=== PATIENT | male | born 1935 | race Caucasian/White ===

== ENCOUNTER 2017-03-22 17:44 | Emergency (ER) | payer MEDICARE, OTHER ==
[2017-03-22 18:00] VITALS: BP 127/50
--- NOTE | 2017-03-22 18:21 | UC ---
Laceration HPI - History Of Current Complaint Chief Complaint: Luisa Stated Complaint: LEFT ARM SKIN COMPLAINT Time Seen by Provider: 03/22/17 18:12 Hx Obtained From: Patient Laceration Location: Arm - Left forearm Mechanism Of Injury: Sharp Trauma - caught on the edge of a door latch and the skin was torn. Onset/Duration: Sudden Onset - caught on door latch. Aggravating Factors: Nothing - Allergies/Home Medications Allergies/Adverse Reactions: Allergies Allergy/AdvReac Type Severity Reaction Status Date / Time Ibuprofen AdvReac Intermediate See Comment Verified 03/22/17 17:54 Home Medications: Home Medications Bimatoprost 0.01% OPHTH (NF) [Lumigan 0.01% OPHTH (NF)] 1 drop BOTH EYES QPM [History Confirmed 03/22/17] Brimonidine 0.2 % * [Alphagan P 0.2% *] 1 drop BOTH EYES BID 03/22/17 [History Confirmed 03/22/17] Cholestyramine Resin* [Questran*] 4 gm PO BID 03/22/17 [History Confirmed ] Dorzolamide/Timolol OPTH (NF) [Cosopt (NF)] 1 drop BOTH EYES BID 03/22/17 [ History Confirmed 03/22/17] Magnesium Chloride EC TAB* [Slow Mag EC TAB*] 64 mg PO TID 03/22/17 [History Confirmed 03/22/17] Potassium Chlor TAB* [Klor Con ER TAB*] 10 meq PO BID 03/22/17 [History Confirmed 03/22/17] PMH/Surg Hx/FS Hx/Imm Hx Endocrine History: Diabetes Cardiovascular History: Hypertension - Surgical History Surgical History: Yes Surgery Procedure, Year, and Place: TONSILLECTOMY, APPY, AORTIC VALVE REPLACEMENT, PROSTATE SURGERY, LEFT LEG SURGERY. left inguinal hernia surgery - Social History Occupation: Retired Lives: With Family Alcohol Use: Rare Substance Use Type: None Smoking Status (MU): Former Smoker Have You Smoked in the Last Year: No When Did the Patient Quit Smoking/Using Tobacco: 28 years ago Review of Systems ENT: Nasal Discharge Respiratory: Cough - with post nasal drip. All Other Systems Reviewed And Are Negative: Yes Physical Exam Triage Information Reviewed: Yes Appearance: Well-Appearing, No Pain Distress, Well-Nourished Vital Signs: Initial Vital Signs Temp 98.9 F 03/22/17 17:55 Pulse 65 03/22/17 17:55 Resp 16 03/22/17 17:55 BP 127/50 03/22/17 17:55 Pulse Ox 99 03/22/17 17:55 Vital Signs Reviewed: Yes Eyes: Positive: Conjunctiva Inflamed - OU Neck exam: Normal Respiratory Exam: Normal Cardiovascular Exam: Normal Musculoskeletal Exam: Normal Neurological Exam: Normal Psychological Exam: Normal Skin: Positive: Other - Skin tear/ partial thickness 1.2x0.9 and 0.5x0.4cm on the dorsal left forearm. Laceration Repair - Laceration Repair 1 Description: Irregular - skin tear : No Repair Necessary Laceration Course/Dx - Differential Dx - Laceration/Wound Differental Diagnoses: Abrasion, Healing Wound, Laceration Provider Diagnoses: Open wound left forearm. Discharge - Discharge Plan Condition: Stable Disposition: HOME Patient Education Materials: Skin Tear (ED) Additional Instructions: Ok to shower. Use the antibiotic ointment and telfa pad and change twice daily until healed. Yellow green "pus" discharge is fine, spreading redness is not.
== END 2017-03-22 18:36 | disposition home or self-care (01) ==
LOC: UCCORT 17:44
DX: S51.812A Laceration without foreign body of left forearm, initial encounter (principal); W26.8XXA Contact with other sharp object(s), not elsewhere classified, initial encounter; Y93.9 Activity, unspecified; Y99.9 Unspecified external cause status; I10 Essential (primary) hypertension; E11.9 Type 2 diabetes mellitus without complications
CPT/HCPCS: 99212; G0463

== ENCOUNTER 2017-12-03 15:49 | Emergency (ER) | payer MEDICARE, OTHER ==
--- NOTE | 2017-12-03 16:44 | UC ---
General HPI - HPI Summary HPI Summary: 82 year old male with history of HTN, AVR here for low blood pressure reading at home 104/44. Patient reports he was doing yard wok, and he measured his blood pressure at home as he does routinely. It read low, prompting him to come to the ED. Denies chest pain, sob, dizziness, abdominal pain, leg pain or any other complaints. - History of Current Complaint Chief Complaint: UCGeneralIllness Stated Complaint: LOW BLOOD PRESSURE Time Seen by Provider: 12/03/17 16:21 Onset/Duration: Sudden Onset Onset Severity: Moderate Pain Intensity: 0 Associated Signs & Symptoms: Positive: Headache. Negative: Abdominal Pain, Back Pain, Cough, Chest Pain, Dizziness, Diarrhea, Fever, Hematemesis, Hemoptysis, Melena, Syncope, Trauma, Vomiting - Allergy/Home Medications Allergies/Adverse Reactions: Allergies Allergy/AdvReac Type Severity Reaction Status Date / Time ibuprofen AdvReac See Comment Verified 12/03/17 16:37 PMH/Surg Hx/FS Hx/Imm Hx Previously Healthy: No - Surgical History Surgical History: Yes Surgery Procedure, Year, and Place: TONSILLECTOMY, APPY, AORTIC VALVE REPLACEMENT, PROSTATE SURGERY, LEFT LEG SURGERY. left inguinal hernia surgery - Family History Known Family History: Positive: None - Social History Alcohol Use: Rare Substance Use Type: None Smoking Status (MU): Former Smoker Have You Smoked in the Last Year: No When Did the Patient Quit Smoking/Using Tobacco: 28 years ago Review of Systems Constitutional: Negative Skin: Negative Eyes: Negative ENT: Negative Respiratory: Negative Cardiovascular: Negative Gastrointestinal: Negative Genitourinary: Negative Motor: Negative Neurovascular: Negative Musculoskeletal: Negative Neurological: Negative Psychological: Negative All Other Systems Reviewed And Are Negative: Yes Physical Exam Triage Information Reviewed: Yes Appearance: Well-Appearing, No Pain Distress Vital Signs: Initial Vital Signs Temp 37.2 C 12/03/17 15:51 Pulse 57 12/03/17 15:51 Resp 17 12/03/17 15:51 BP 145/72 12/03/17 15:51 Pulse Ox 95 12/03/17 15:51 Eye Exam: Normal Dental Exam: Normal Neck exam: Normal Respiratory Exam: Normal Cardiovascular Exam: Other Cardiovascular: Positive: Other: - mid systolic click Abdomen Description: Positive: Nontender Musculoskeletal Exam: Normal Skin Exam: Normal Course/Dx - Course Course Of Treatment: Observed for one hour. He was normotensive here with no compaint. Repeat BP was 142/69 and 151/69. Reassured patient and instructed to skip his BP meds tonight. - Differential Dx - Multi-Symptom Differential Diagnoses: Sepsis, Urinary Tract Infection, Other Provider Diagnoses: Episode of hypotensive read, resolved Discharge - Sign-Out/Discharge Documenting (check all that apply): Discharge/Admit/Transfer - Discharge Plan Condition: Good Disposition: HOME Patient Education Materials: Hypotension (ED) Referrals: Megan Sarabia PA [Primary Care Provider] - Additional Instructions: Please go to the ED for chest pain, sob or dizziness. - Billing Disposition and Condition Condition: GOOD Disposition: HOME
[2017-12-03 17:34] VITALS: BP 151/69
== END 2017-12-03 17:35 | disposition home or self-care (01) ==
LOC: UCCORT 15:49
DX: R03.1 Nonspecific low blood-pressure reading (principal); Z88.6 Allergy status to analgesic agent; Z87.891 Personal history of nicotine dependence
CPT/HCPCS: 99212; G0463

== ENCOUNTER 2018-03-01 15:17 | Emergency (ER) | payer MEDICARE, OTHER ==
[2018-03-01 15:53] VITALS: BP 120/57
--- NOTE | 2018-03-01 16:30 | UC ---
UC General HPI - HPI Summary HPI Summary: pt states he was using a screw veronica to remove temporary metal garden posts when a post bumped him in the head. he notes it did bleed a little but didn't knock him down or cause a LOC. he denies any GARCIA, nausea, visual changes or any other complaints. he just wants to be checked out. last eteanus was within 10 years, denies blood thinner use. - History of Current Complaint Chief Complaint: UCHeadInjury Stated Complaint: HEAD LAC Time Seen by Provider: 03/01/18 16:19 Hx Obtained From: Patient Onset/Duration: Sudden Onset Pain Intensity: 0 Aggravating: nothing Alleviating: nothing Associated Signs & Symptoms: Negative: Confusion, Dizziness, Headache, Nausea, Vomiting - Allergy/Home Medications Allergies/Adverse Reactions: Allergies Allergy/AdvReac Type Severity Reaction Status Date / Time ibuprofen AdvReac See Comment Verified 12/03/17 16:37 Home Medications: Home Medications Ascorbic Acid TAB* [Vitamin C TAB*] 500 mg PO DAILY 03/01/18 [History Confirmed 03/01/18] Multivitamin [Multivitamins] 1 cap PO DAILY 03/01/18 [History Confirmed 03/01/18 ] Vitamin B Complex [Super B-50 Complex] 1 each PO DAILY 03/01/18 [History Confirmed 03/01/18] PMH/Surg Hx/FS Hx/Imm Hx Endocrine History: Dyslipidemia Cardiovascular History: Hypertension GI/ History: Gastroesophageal Reflux - Surgical History Surgical History: Yes Surgery Procedure, Year, and Place: TONSILLECTOMY, APPY, AORTIC VALVE REPLACEMENT, PROSTATE SURGERY, LEFT LEG SURGERY. left inguinal hernia surgery - Family History Known Family History: Positive: None - Social History Occupation: Retired Alcohol Use: None Substance Use Type: None Smoking Status (MU): Former Smoker Have You Smoked in the Last Year: No When Did the Patient Quit Smoking/Using Tobacco: 28 years ago - Immunization History Hx Tetanus, Diphtheria Vaccination: Yes Vaccination Up to Date: Yes Review of Systems Constitutional: Negative Skin: Other - cut on head Eyes: Negative ENT: Negative Respiratory: Negative Cardiovascular: Negative Gastrointestinal: Negative Genitourinary: Negative Motor: Negative Neurovascular: Negative Musculoskeletal: Negative Neurological: Negative Psychological: Negative Is Patient Immunocompromised?: No All Other Systems Reviewed And Are Negative: Yes Physical Exam Triage Information Reviewed: Yes Appearance: Well-Appearing Vital Signs: Initial Vital Signs Temp 98.8 F 03/01/18 15:46 Pulse 60 03/01/18 15:46 Resp 18 03/01/18 15:46 BP 120/57 03/01/18 15:46 Pulse Ox 99 03/01/18 15:46 Vital Signs Reviewed: Yes Eyes: Positive: Conjunctiva Clear, Other: - PERRL, EOMI. ENT: Positive: Pharynx normal, TMs normal. Negative: Nasal congestion, Nasal drainage Neck: Positive: Supple, Nontender, No Lymphadenopathy, Other: - C-spine non tender.ROM intact. Respiratory: Positive: Lungs clear, Normal breath sounds Cardiovascular: Positive: RRR, No Murmur Abdomen Description: Positive: Nontender, No Organomegaly, Soft Bowel Sounds: Positive: Present Musculoskeletal: Positive: ROM Intact Neurological: Positive: Other: - A&O x 3. CN 2-12 grossly intact. s/v/m intact x4. steady gait. Psychological: Positive: Age Appropriate Behavior Skin Exam: Normal, Other - 1cm superficial scalp laceration. scant bleeding. No cranial step off, instability or tenderness. Course/Dx - Course Course Of Treatment: Procedure: wound washed with soap and sterile water, dried then area prep with mastisol. single steri strip applied. pt tolerated well. no concern for fx. no concern for intrcranial bleed and pt not on anticoagulation thus wound tx and f/u for recheck. - Differential Dx - Multi-Symptom Provider Diagnoses: 1cm superficial scalp laceration Discharge - Sign-Out/Discharge Documenting (check all that apply): Patient Departure - Discharge Plan Condition: Stable Disposition: HOME Patient Education Materials: Head Injury (ED), Steristrips (ED) Referrals: Kirsten Avila MD [Primary Care Provider] - 3 Days - Billing Disposition and Condition Condition: STABLE Disposition: Home
== END 2018-03-01 16:50 | disposition home or self-care (01) ==
LOC: UCCORT 15:17
DX: S01.01XA Laceration without foreign body of scalp, initial encounter (principal); W22.8XXA Striking against or struck by other objects, initial encounter; Y93.89 Activity, other specified; Y92.9 Unspecified place or not applicable; Z88.6 Allergy status to analgesic agent; I10 Essential (primary) hypertension; Z87.891 Personal history of nicotine dependence
CPT/HCPCS: 12001; 99212; G0463

== ENCOUNTER 2018-12-27 08:14 | Emergency (ER) | payer MEDICARE, OTHER ==
[2018-12-27 08:47] VITALS: BP 144/65
--- NOTE | 2018-12-27 09:22 | UC ---
General HPI - HPI Summary HPI Summary: Tick on R arm, unable to reach it. states there for 3 days from trimming brush at his restoration. - History of Current Complaint Chief Complaint: UCForeignBody Stated Complaint: TICK Time Seen by Provider: 12/27/18 09:10 Hx Obtained From: Patient Timing: Constant Pain Intensity: 0 Associated Signs & Symptoms: Negative: Fever - Allergy/Home Medications Allergies/Adverse Reactions: Allergies Allergy/AdvReac Type Severity Reaction Status Date / Time ibuprofen AdvReac See Comment Verified 12/27/18 08:47 PMH/Surg Hx/FS Hx/Imm Hx Endocrine History: Dyslipidemia Cardiovascular History: Hypertension - Surgical History Surgical History: Yes Surgery Procedure, Year, and Place: TONSILLECTOMY, APPY, AORTIC VALVE REPLACEMENT, PROSTATE SURGERY, LEFT LEG SURGERY. left inguinal hernia surgery - Family History Known Family History: Positive: None - Social History Occupation: Retired Alcohol Use: None Substance Use Type: None Smoking Status (MU): Former Smoker Have You Smoked in the Last Year: No When Did the Patient Quit Smoking/Using Tobacco: 28 years ago - Immunization History Hx Tetanus, Diphtheria Vaccination: Yes Vaccination Up to Date: Yes Review of Systems All Other Systems Reviewed And Are Negative: No Constitutional: Negative: Fever, Chills Skin: Negative: Rash Musculoskeletal: Negative: Arthralgia Physical Exam Triage Information Reviewed: Yes Appearance: Well-Appearing Vital Signs: Initial Vital Signs Temp 97.3 F 12/27/18 08:40 Pulse 56 12/27/18 08:40 Resp 18 12/27/18 08:40 BP 144/65 12/27/18 08:40 Pulse Ox 99 12/27/18 08:40 Vital Signs Reviewed: Yes Eyes: Positive: Conjunctiva Clear Neck: Positive: Supple Respiratory: Positive: No respiratory distress Musculoskeletal: Positive: ROM Intact Neurological: Positive: Alert Psychological: Positive: Age Appropriate Behavior Skin Exam: Normal, Other - Engorged tick on back or R upper arm. Course/Dx - Course Course Of Treatment: This provider removed tick whole with a twister. No bullseye rash. Site cleaned. - Diagnoses Provider Diagnosis: Tick bite Discharge - Sign-Out/Discharge Documenting (check all that apply): Patient Departure All imaging exams completed and their final reports reviewed: No Studies - Discharge Plan Condition: Stable Disposition: HOME Prescriptions: DOXYcycline CAP(*) [DOXYcycline 100MG CAP(*)] 200 mg PO ONCE #2 cap Patient Education Materials: Tick Bite (ED) Referrals: Kirsten Avila MD [Primary Care Provider] - If Needed - Billing Disposition and Condition Condition: STABLE Disposition: Home
== END 2018-12-27 09:29 | disposition home or self-care (01) ==
LOC: UCCORT 08:14
DX: S40.861A Insect bite (nonvenomous) of right upper arm, initial encounter (principal); I10 Essential (primary) hypertension; Z88.8 Allergy status to other drugs, medicaments and biological substances; Z87.891 Personal history of nicotine dependence; W57.XXXA Bitten or stung by nonvenomous insect and other nonvenomous arthropods, initial encounter; Y92.9 Unspecified place or not applicable
CPT/HCPCS: 99212; G0463